=== PATIENT | male | born 1980 | race Caucasian/White ===

== ENCOUNTER 2024-03-27 12:51 | Emergency (ER) | payer OTHER, SELFPAY ==
--- NOTE | 2024-03-27 12:57 | ED.EYEPROB ---
HPI - Eye Problem General Chief complaint: Eye Problems Stated complaint: right eye pain Time Seen by Provider: 03/27/24 12:57 Source: patient Mode of arrival: ambulatory Limitations: no limitations History of Present Illness HPI Narrative: Alberto is a 43-year-old male patient presenting to the clinic today with complaints of right eye pain x1 day. He reports he was hanging drywall yesterday and got some dust in his eye. Reports has pain and irritation to the right lower eye. Does have some eye watering at times. Is unable to keep his eye open without significant discomfort. He and his significant other irrigated his eye out yesterday Related Data Allergies Allergy/AdvReac Type Severity Reaction Status Date / Time shellfish derived Allergy Severe Anaphylactic Verified 03/27/24 13:09 Shock Penicillins Allergy Mild Unknown Verified 03/27/24 13:09 Review of Systems Review of Systems: Pertinent positives per HPI. Patient denies any fever, chills, rash, headache, visual changes, dizziness, cough, runny nose, sore throat, shortness of breath, chest pain, palpitations, nausea, vomiting, diarrhea, constipation, abdominal pain, or any urinary issues. PMFSH Comments At the time of my signature, I reviewed and agree with the nursing past medical, surgical, social, and family history. There is no relevant family history pertinent to the patient complaint. Exam Narrative: General: Well-developed, well nourished, in no apparent distress Head: Normocephalic, atraumatic Eyes: Pupils equally round and reactive to light bilaterally, EOM intact, sclera and conjunctive clear, appears to have some retained drywall dust in the right lower eyelid, no discharge, lids normal, Wood's lamp exam was performed and shows no sign of corneal abrasion Ears: TMs intact and clear, ear canals clear, no drainage, grossly hearing normal. Nose: Nares patent, no discharge, no inflammation, no sinus tenderness. Mouth: Oropharynx without lesions or masses, good dentition, MMM. Neck: Supple, trachea midline, no enlargement of anterior or posterior cervical nodes, no thyroid masses or goiter palpable. Cardio: Regular rate and rhythm, s1 and s2 normal, no murmur appreciated. Resp: Clear to auscultation bilaterally anteriorly and posteriorly, no rhonchi, rales, wheezing or rubs Course Course Emergency Course: Portions of this record may have been created with voice recognition software. Level of Care: Express Care Visit Vital Signs Vital signs: Vital Signs Temperature 36.9 C 03/27/24 13:01 Pulse Rate 113 H 03/27/24 13:01 Respiratory Rate 16 03/27/24 13:01 Blood Pressure 138/80 03/27/24 13:01 Pulse Oximetry 100 03/27/24 13:01 Oxygen Delivery Room Air 03/27/24 13:01 Temperature 36.9 C 03/27/24 13:01 Pulse Rate 113 H 03/27/24 13:01 Respiratory Rate 16 03/27/24 13:01 Blood Pressure 138/80 03/27/24 13:01 Pulse Oximetry 100 03/27/24 13:01 Oxygen Delivery Room Air 03/27/24 13:01 Vital signs reviewed Procedures Other Procedure Procedure 1: Other Procedure: Two drops of topical tetracaine anesthetic was instilled with good anesthesia into the right eye Fluorescein stain of the right eye was performed without uptake of dye. No epithelial defect was noted. NO ulcer or dendritic lesions. Upper lid was everted and no FB or lesions were noted. White dust back/foreign body noted to the right lower eyelid, NO Raymond sign. Normal saline irrigation eye solution was performed and the patient tolerated the procedure well, no adverse reaction or complications. MDM - Eye Problem MDM Narrative Medical decision making narrative: At the time of visit patient is resting comfortably on the exam table. Patient appears to be nontoxic. Procedures: Wood's lamp exam was performed and shows no obvious sign of corneal abrasion. Able to see some white does specks in the right lower eyelid. Attempted to irrigate with some success. Plan: I suspect patient has right eye irritation/foreign body in the right eye. Eye wash was performed in the clinic today to attempted to remove all the foreign body. Will send the eye wash stream home with the patient to continue use as needed. Will also send over tobramycin eyedrops to cover for secondary infection. Supportive measures were discussed with the patient and they voiced understanding discharge instructions and agrees to treatment plan. Return precautions reviewed Differential Diagnosis Differential diagnosis: Likely corneal abrasion, conjunctivitis, acute iritis, hyphema, periorbital cellulitis, subconjunctival hemorrhage, glaucoma, corneal ulcer and ruptured globe Discharge Plan Discharge Clinical Impression: Irritation of right eye Foreign body in eye Qualifiers: Encounter type: initial encounter Laterality: right Qualified Code(s): T15.91XA - Foreign body on external eye, part unspecified, right eye, initial encounter Patient Disposition: Home, Self-Care Condition: Stable Instructions: Antibiotic Form, Eye Foreign Body (ED), Eye Pain (ED) Additional Instructions: Practice good hand washing techniques Avoid touching eyes May irrigate the right eye using the eye stream wash Instill eyedrops as prescribed-tobramycin May use warm cool compress washcloth to help alleviate pain and swelling May take Tylenol/Motrin as needed for pain or fever May take Benadryl as needed for itching Follow-up with your PCP in 3-5 days if symptoms persist or sooner if they worsen Go to the emergency room if you develop any fever that is not controlled by Tylenol or Motrin, loss of vision, eye pain, increase eye swelling,visual changes, headache, confusion, lethargy, weakness, chest pain, or shortness of breath. Prescriptions: New tobramycin 0.3 % drops 1 drp RIGHT EYE Q4H 7 Days Qty: 5 0RF Follow-up/Referrals: PHYSICIAN,NATUROPATHIC ONCOLOGY PROVIDER [Primary Care Provider] - Stand Alone Forms: Work/School Release IP Time of Disposition: 13:22 Quality NIHSS Nursing Documentation ED NIHSS nursing documentation: reviewed/agree
[2024-03-27 13:01] VITALS: BP 138/80; PULSE 113; RESP 16; TEMP 36.9; O2SAT 100
[2024-03-27] MEDS: DACRIOSE EYE IRRIGATION 118 ML BOTTLE RIGHT EYE (13:15)
[2024-03-27] MEDS: FLUORESCEIN SOD 1 MG/STRIP RIGHT EYE (13:15)
[2024-03-27] MEDS: TETRACAINE HCL 0.5% OPHTH SOLN 4 ML BTL RIGHT EYE (13:15)
== END 2024-03-27 13:26 | disposition home or self-care (01) ==
PROVIDERS: Emergency Provider Nurse Practitioner Family
DX: H57.11 Ocular pain, right eye (principal)
CPT/HCPCS: 99213; A9270; G0463

== ENCOUNTER 2024-08-07 13:08 | Emergency (ER) | payer OTHER, SELFPAY ==
--- NOTE | ~2024-08-07 | XR_ITS ---
XR knee RT min 4V 08/07/2024 13:33 Indication: Right lateral knee pain Procedure: 4 views right knee Comparison: No prior studies for comparison. Findings: No fracture, subluxation or dislocation. There is anatomic alignment. No significant joint effusion. No foreign bodies. Impression: 1: No acute bone or joint abnormality. Reviewed, dictated and finalized at location B. Impression: 1: No acute bone or joint abnormality.
--- NOTE | ~2024-08-07 | XR_ITS ---
HISTORY: lateral ankle injury 2 days ago COMPARISON: TECHNIQUE: 3 views of the right ankle FINDINGS: No acute fracture or dislocation. No significant soft tissue swelling. The ankle mortise is preserved. Bone mineralization is age-appropriate. IMPRESSION: No acute fracture or dislocation. Reviewed, dictated and finalized at location A.
[2024-08-07 13:17] VITALS: BP 127/73; PULSE 97; RESP 18; TEMP 36.7; O2SAT 99
--- NOTE | 2024-08-07 13:23 | ED_ITS ---
HPI - Extremity Injury (Lower) General Chief Complaint: Extremity Injury, Lower Stated Complaint: ankle,knee right Time Seen by Provider: 08/07/24 13:20 Source: patient and RN notes reviewed Mode of arrival: ambulatory Limitations: no limitations History of Present Illness HPI Narrative: 43-year-old male presents Express Care complaining of a right knee and ankle injury 2 days ago. Patient was stepping off a bus when he stepped out on uneven Road and rolled his right ankle and injured his right knee. The patient denies falling to the ground. Patient says he has pain on the lateral side and posterior part of his right knee and pain in his lateral right ankle. Patient is able to ambulate and bear weight on his lower extremities. Patient says there is some swelling to his right ankle. The pain is worse when he moves his right knee or his right ankle. He denies hearing any popping sounds when the injury occurred. Patient says he has been taking ibuprofen for pain with some relief. Patient denies any other injuries. Related Data Home Medications ?Medication ?Instructions ?Recorded ?Confirmed ?Last Taken ?Type No Home Medications 08/07/24 08/07/24 Unknown History Allergies Allergy/AdvReac Type Severity Reaction Status Date / Time shellfish derived Allergy Severe Anaphylactic Verified 08/07/24 13:17 Shock Penicillins Allergy Mild Unknown Verified 08/07/24 13:17 Review of Systems Review of Systems: CONSTITUTIONAL: Denies fever, chills, or sweats. EYES: Denies visual changes, redness, or discharge. ENT: Denies rhinorrhea, congestion, sore throat, or otalgia. CARDIOVASCULAR: Denies chest pain, palpitations, or edema. RESPIRATORY: Denies cough or dyspnea. GASTROINTESTINAL: Denies abdominal pain, nausea, vomiting, or diarrhea. GENITOURINARY: Denies dysuria or hematuria. SKIN: Denies rash or itching. MUSCULOSKELETAL: Denies back pain, joint pain, or myalgia. Positive for Right knee and right ankle pain. NEUROLOGIC: Denies headache, numbness, or weakness. PSYCHIATRIC: Denies anxiety or depression. All other systems reviewed are negative, except as documented in HPI. PMFSH Comments At the time of my signature, I reviewed and agree with the nursing past medical, surgical, social, and family history. There is no relevant family history pertinent to the patient complaint. Exam Narrative: GENERAL: This is a well-nourished, well-developed adult, in no apparent distress. They are non ill-appearing, nontoxic appearing. HEAD: normocephalic, atraumatic. EYES: Sclera clear/white. Vision is grossly intact. Extraocular movements intact EARS: External ears normal, Hearing grossly intact. NOSE: External nose normal THROAT: Mucous membranes moist NECK: Normal range of motion CARDIOVASCULAR: Regular rate and rhythm RESPIRATORY: Normal respiratory rate, respiratory effort nonlabored, no respiratory distress SKIN: warm, Dry, intact with no suspicious lesions or rash, good texture and turgor. NEURO: awake, alert, and oriented to person, place and time. There were no obvious focal neurologic abnormalities. EXTREMITIES: Right knee: There is no obvious deformity, injury, swelling, redness, or bruising. Tenderness to palpation to the lateral upper and upper posterior part of the knee. Mild discomfort with good range of motion. Patella is intact, normal movement of the patella. There is no valgus or varus laxity. Negative anterior drawer test. Capillary refill less than 2 seconds, neurovascular status intact distal to injury. Right ankle: No obvious deformity, injury, redness, or bruising. Trace swelling to the lateral side of the ankle. There is lateral tenderness to palpation of the ankle. Mild discomfort with good range of motion. Negative Arias's test, Patient is able to dorsiflex and plantar flex. Patient is able to wiggle his toes. Pedal pulses 2+ and palpable. Capillary refills less than 2 seconds. Neurovascular status is intact distal to injury. BACK: Nontender without deformity. Course Course Emergency Course: Patient is aware of diagnosis, understands and agrees to treatment plan. Anticipatory guidance given. Patient agrees to follow-up as directed and is aware of reasons to seek care at the emergency department. Portions of this record may have been created with voice recognition software Level of Care: Express Care Visit Vital Signs Vital signs: Vital Signs Temperature 98.0 F 08/07/24 13:17 Pulse Rate 97 08/07/24 13:17 Respiratory Rate 18 08/07/24 13:17 Blood Pressure 127/73 08/07/24 13:17 Pulse Oximetry 99 08/07/24 13:17 Oxygen Delivery Room Air 08/07/24 13:17 Temperature 98.0 F 08/07/24 13:17 Pulse Rate 97 08/07/24 13:17 Respiratory Rate 18 08/07/24 13:17 Blood Pressure 127/73 08/07/24 13:17 Pulse Oximetry 99 08/07/24 13:17 Oxygen Delivery Room Air 08/07/24 13:17 Reviewed MDM - Extremity Injury (Lower) MDM Narrative Medical decision making narrative: X-rays were negative for any acute fractures or findings. Symptoms likely a knee and ankle strain. Ulises wraps were given for patient's right knee and right ankle. Discussed physical exam findings. Advised supportive measures and signs/symptoms to go to the ER. Pt is appropriate for outpt treatment and f/u. Differential Diagnosis Differential diagnosis: Likely ankle sprain and strain, ankle fracture and other (Knee fracture, knee sprain) Imaging Data Radiologist's impression: ITS Impressions Knee X-Ray 08/07/24 13:39 Impression: 1: No acute bone or joint abnormality. Ankle X-Ray 08/07/24 13:56 IMPRESSION: No acute fracture or dislocation. Critical Care Time Critical Care Time Critical Care Time: No Discharge Plan Discharge Clinical Impression: Injury of knee, right Qualifiers: Encounter type: initial encounter Qualified Code(s): S89.91XA - Unspecified injury of right lower leg, initial encounter Injury of ankle, right Qualifiers: Encounter type: initial encounter Qualified Code(s): S99.911A - Unspecified injury of right ankle, initial encounter Patient Disposition: Home Condition: Stable Instructions: Ankle Sprain (DC), Knee Sprain (DC) Additional Instructions: Your x-rays were negative for any fractures Rest and elevate the leg; bear weight as tolerated Apply ice or heat 15-20 minute intervals several times a day Keep your knee and ankle wrapped with ULISES. Motrin 600mg -800mg every 8 hours, alternate with Tylenol 1000mg every 8 hours as needed Follow up with your primary care provider or orthopedist as needed in 1-2 weeks or if your pain persist Patient Language: Albanian Prescriptions: No Action No Home Medications Follow-up/Referrals: Dioni Fernández MD [Physician] - UNKNOWN,DOCTOR [Primary Care Provider] - Time of Disposition: 14:12
== END 2024-08-07 14:18 | disposition home or self-care (01) ==
DX: S89.91XA Unspecified injury of right lower leg, initial encounter (principal); S99.911A Unspecified injury of right ankle, initial encounter; W10.8XXA Fall (on) (from) other stairs and steps, initial encounter
CPT/HCPCS: 73564; 73610; 99214; G0463